=== PATIENT | female | born 1975 | race American Indian/Alaskan Native ===

== ENCOUNTER 2018-08-30 12:18 | Emergency (ER) | payer SELFPAY ==
--- NOTE | 2018-08-30 12:24 | Emergency Department Report ---
Blank Doc - Documentation Documentation: 43 y/o female presents to ED c/o of 15-30 minutes of dizziness associated with SOB, palpitations and chest ache. no visual changes. NO PMH. Deines drugs but admits to tobacco use (smoking) Plan Labs, Cxr, ekg
[2018-08-30 12:28] VITALS: BP 154/83
[2018-08-30 13:07] LABS: Basophils % (Auto) 0.6 % (0.0-1.8); Eosinophils # (Auto) 0.1 K/mm3 (0.0-0.4); Hematocrit 37.3 % (30.3-42.9); Hemoglobin 12.6 gm/dl (10.1-14.3); Mean Corpuscular HGB Conc 34 % (30-34); Mean Corpuscular Volume 89 fl (79-97); Monocytes # (Auto) 0.4 K/mm3 (0.0-0.8); Monocytes % (Auto) 7.7 % (0.0-7.3); Platelet Count 318 K/mm3 (140-440); Red Blood Count 4.17 M/mm3 (3.65-5.03); Red Cell Distribution Width 13.4 % (13.2-15.2)
[2018-08-30 13:10] LABS: Bilirubin,Urine NEG (Negative); Blood,Urine MOD (Negative); Calcium Oxalate Crystals,Urine 1+; Color,Urine Yellow (Yellow); Protein,Urine <15 mg/dL mg/dL (Negative); RBC,Urine < 1.0 /HPF (0.0-6.0); Urobilinogen,Urine < 2.0 mg/dL (<2.0); WBC,Urine < 1.0 /HPF (0.0-6.0)
[2018-08-30 13:19] LABS: Alanine Aminotransferase 12 units/L (7-56); Albumin 4.1 g/dL (3.9-5); BUN/Creatinine Ratio 13; Blood Urea Nitrogen 9 mg/dL (7-17); Calcium 8.8 mg/dL (8.4-10.2); Hemolysis Index 8
--- NOTE | 2018-08-30 13:54 | XRay Report ---
PROCEDURE: XR CHEST ROUTINE 2V TECHNIQUE: Chest, PA and lateral HISTORY: Lightheadedness/Dizziness COMPARISON: None FINDINGS: The heart size is normal. There is no pulmonary vascular congestion seen. Mediastinal contours are normal. Lungs are clear. There is no pleural effusion seen. There is no pneumothorax seen. IMPRESSION: No acute abnormality identified. This document is electronically signed by Cinthya Johnson MD., August 30 2018 01:53:14 PM ET
--- NOTE | 2018-08-30 14:10 | Emergency Department Report ---
ED Dizziness HPI - General Chief Complaint: Dizziness Stated Complaint: DIZZY Time Seen by Provider: 08/30/18 12:20 Source: patient Mode of arrival: Ambulatory Limitations: No Limitations - History of Present Illness Initial Comments: This is a 43-year-old female who presents to ED complaining about feeling lightheaded and dizzy while she was at [facility] earlier today. Patient states she was not doing the history and sensitivity she was walking when she felt her knees buckle. She did not sustain any trauma or injuries. He denies nausea/vomiting/chest pain/abdominal pain/shortness of breath MD Complaint: dizziness - Related Data Previous Rx's Medication Instructions Recorded Last Taken Type Meclizine [Antivert] 25 mg PO TID PRN #21 tablet 08/30/18 Unknown Rx Allergies Allergy/AdvReac Type Severity Reaction Status Date / Time No Known Allergies Allergy Verified 08/30/18 12:19 ED Review of Systems ROS: Stated complaint: DIZZY Other details as noted in HPI Comment: All other systems reviewed and negative Constitutional: denies: chills, fever Eyes: denies: eye pain, eye discharge, vision change ENT: denies: ear pain, throat pain Respiratory: denies: cough, shortness of breath, wheezing Cardiovascular: denies: chest pain, palpitations Endocrine: no symptoms reported Gastrointestinal: denies: abdominal pain, nausea, diarrhea Genitourinary: denies: urgency, dysuria, discharge Musculoskeletal: denies: back pain, joint swelling, arthralgia Skin: denies: rash, lesions Neurological: denies: headache, weakness, paresthesias Psychiatric: denies: anxiety, depression Hematological/Lymphatic: denies: easy bleeding, easy bruising ED Past Medical Hx - Past Medical History Previous Medical History?: No - Surgical History Additional Surgical History: c section - Social History Smoking Status: Current Every Day Smoker Substance Use Type: Alcohol - Medications Home Medications: Home Medications Medication Instructions Recorded Confirmed Last Taken Type Meclizine [Antivert] 25 mg PO TID PRN #21 tablet 08/30/18 Unknown Rx ED Physical Exam - General Limitations: No Limitations General appearance: alert, in no apparent distress - Head Head exam: Present: atraumatic, normocephalic - Eye Eye exam: Present: normal appearance - ENT ENT exam: Present: mucous membranes moist - Neck Neck exam: Present: normal inspection - Respiratory Respiratory exam: Present: normal lung sounds bilaterally. Absent: respiratory distress - Cardiovascular Cardiovascular Exam: Present: regular rate, normal rhythm. Absent: systolic murmur, diastolic murmur, rubs, gallop - GI/Abdominal GI/Abdominal exam: Present: soft, normal bowel sounds - Extremities Exam Extremities exam: Present: normal inspection - Back Exam Back exam: Present: normal inspection - Neurological Exam Neurological exam: Present: alert, oriented X3 - Psychiatric Psychiatric exam: Present: normal affect, normal mood - Skin Skin exam: Present: warm, dry, intact, normal color. Absent: rash ED Course Vital Signs 08/30/18 12:26 Temperature 98.6 F Pulse Rate 107 H Respiratory 18 Rate Blood Pressure 154/83 O2 Sat by Pulse 99 Oximetry ED Medical Decision Making - Lab Data Result diagrams: 08/30/18 12:44 08/30/18 12:44 - Radiology Data Radiology results: report reviewed, image reviewed PROCEDURE: XR CHEST ROUTINE 2V TECHNIQUE: Chest, PA and lateral HISTORY: Lightheadedness/Dizziness COMPARISON: None FINDINGS: The heart size is normal. There is no pulmonary vascular congestion seen. Mediastinal contours are normal. Lungs are clear. There is no pleural effusion seen. There is no pneumothorax seen. IMPRESSION: No acute abnormality identified. This document is electronically signed by Cinthya Chavez MD., August 30 2018 01:53:14 PM ET Transcribed By: MELCHOR Dictated By: CINTHYA CHAVEZ MD Electronically Authenticated By: CINTHYA CHAVEZ MD Signed Date/Time: 08/30/18 1914 - Medical Decision Making 23-year-old female presents with lightheadedness/vertigo. Vital signs are normal patient is not acute distress LABS within normal limits. She did mention that she is a vertical couple years ago. Patient had no neurological deficit. Patient understands instructions and patient was speaking in clear sentences. Discussed follow-up with primary care physician. Critical care attestation.: If time is entered above; I have spent that time in minutes in the direct care of this critically ill patient, excluding procedure time. ED Disposition Clinical Impression: Vertigo, Dizziness Disposition: DC-01 TO HOME OR SELFCARE Is pt being admited?: No Does the pt Need Aspirin: No Condition: Stable Instructions: Vertigo (ED), Lightheadedness (ED), Dizziness (ED) Additional Instructions: Make sure to follow up with the primary care physician as discussed. Take all your medications as you've been prescribed. If you have any worsening symptoms or develop new symptoms please return to ED immediately. Prescriptions: Meclizine [Antivert] 25 mg PO TID PRN #21 tablet PRN Reason: Vertigo Referrals: ABHILASH CARDONA MD [Primary Care Provider] - 3-5 Days Forms: Accompanied Note, Work/School Release Form(ED) Time of Disposition: 14:51
[2018-08-30] MEDS ORDERED: ANTIVERT PO ONE (14:15)
== END 2018-08-30 15:00 | disposition home or self-care (01) ==
LOC: ED 12:18
DX: R42 Dizziness and giddiness (principal); F17.200 Nicotine dependence, unspecified, uncomplicated
CPT/HCPCS: 36415; 71046; 80053; 81001; 85025; 93005; 93010

== ENCOUNTER 2018-09-07 19:35 | Emergency (ER) | payer SELFPAY ==
--- NOTE | 2018-09-07 19:47 | Event Note ---
ED Screening Note ED Screening Note: pt presents with lightheadness that began a week ago numbness in the left jaw and left side of tongue x 1 week no dizziness no vision changes states she has ringing in both ears no n/v/d +urinary frequency LNMP 10 days ago was evaluated in the ED for same sx and given meclizine, states not helping no PMHx no allergies to meds This initial assessment/diagnostic orders/clinical plan/treatment(s) is/are subject to change based on patients health status, clinical progression and re- assessment by fellow clinical providers in the ED. Further treatment and workup at subsequent clinical providers discretion. Patient/guardian urged not to elope from the ED as their condition may be serious if not clinically assessed and managed. Initial orders include: UA, urine preg, CT head, labs, EKG, orthostatic vitals
[2018-09-07 20:07] LABS: Basophils % (Auto) 0.4 % (0.0-1.8); Eosinophils # (Auto) 0.1 K/mm3 (0.0-0.4); Eosinophils % (Auto) 0.9 % (0.0-4.3); Hematocrit 36.5 % (30.3-42.9); Hemoglobin 12.4 gm/dl (10.1-14.3); Lymphocytes # (Auto) 2.5 K/mm3 (1.2-5.4); Lymphocytes % (Auto) 31.8 % (13.4-35.0); Mean Corpuscular HGB Conc 34 % (30-34); Mean Corpuscular Volume 91 fl (79-97); Monocytes # (Auto) 0.5 K/mm3 (0.0-0.8); Monocytes % (Auto) 6.3 % (0.0-7.3); Platelet Count 315 K/mm3 (140-440); Red Blood Count 4.04 M/mm3 (3.65-5.03); Red Cell Distribution Width 13.4 % (13.2-15.2)
[2018-09-07 20:29] LABS: BUN/Creatinine Ratio 14; Blood Urea Nitrogen 10 mg/dL (7-17); Calcium 9.5 mg/dL (8.4-10.2); Hemolysis Index 8
[2018-09-07 21:39] LABS: Bilirubin,Urine NEG (Negative); Blood,Urine SM (Negative); Color,Urine Colorless (Yellow); Protein,Urine <15 mg/dL mg/dL (Negative); Urobilinogen,Urine < 2.0 mg/dL (<2.0)
[2018-09-07 21:40] LABS: HCG Qualitative,Urine Negative (Negative)
--- NOTE | 2018-09-07 22:32 | Cat Scan Report ---
PROCEDURE: CT HEAD/BRAIN WO CON TECHNIQUE: Computerized tomography of the head was performed without contrast material. CT DOSE LENGTH PRODUCT: 920.5 mGycm HISTORY: lightheaded, numbness to left jaw/left tongue COMPARISONS: None . FINDINGS: Skull and scalp: Normal . Paranasal sinuses: Normal . Ventricles and subarachnoid spaces: Normal . Cerebrum: No evidence of hemorrhage, acute infarction or mass . Cerebellum and brainstem: No evidence of hemorrhage, acute infarction or mass . Vasculature: Normal . Other: None . ASPECTS: 10 IMPRESSION: No acute intracranial abnormality. This document is electronically signed by Ellen Calixto MD., September 07 2018 10:30:26 PM ET
--- NOTE | 2018-09-07 23:27 | Emergency Department Report ---
ED General Adult HPI - General Chief complaint: Dizziness Stated complaint: DIZZINESS, RINGING IN EARS, LEFT JAW NUMBNESS Time Seen by Provider: 09/07/18 19:43 Source: patient Mode of arrival: Ambulatory Limitations: No Limitations - History of Present Illness Initial comments: 43-year-old [place] female department complaining of having throat irritation and some difficulty breathing. The last one week. States that she feels like something is around her windpipe causing was to change causing her to have occasional, occasional breathing issues. She reports no hemoptysis, no hematemesis, hematochezia. Portion of fever, chills, sweats. She also reports having some mild dizziness, which is primarily concerned about what the issue is with throat. She was previously seen for her dizziness 08/30/2018 prospective prescribed Antivert but has not followed -: Sudden Radiation: non-radiation Quality: crushing, sharp, dull, constant Consistency: constant Improves with: none Worsens with: none Associated Symptoms: denies: confusion, cough, diaphoresis, loss of appetite, malaise, nausea/vomiting, syncope, weakness Treatments Prior to Arrival: none - Related Data Previous Rx's Medication Instructions Recorded Last Taken Type Meclizine [Antivert] 25 mg PO TID PRN #21 tablet 08/30/18 Unknown Rx predniSONE [Deltasone] 50 mg PO QDAY #5 tab 09/07/18 Unknown Rx Allergies Allergy/AdvReac Type Severity Reaction Status Date / Time No Known Allergies Allergy Verified 08/30/18 12:19 ED Review of Systems ROS: Stated complaint: DIZZINESS, RINGING IN EARS, LEFT JAW NUMBNESS Other details as noted in HPI Constitutional: denies: chills, fever Eyes: denies: eye pain, eye discharge, vision change ENT: throat pain. denies: ear pain, dental pain, hearing loss Respiratory: denies: cough, shortness of breath, wheezing Cardiovascular: denies: chest pain, palpitations Endocrine: no symptoms reported Gastrointestinal: denies: abdominal pain, nausea, diarrhea Genitourinary: denies: urgency, dysuria, discharge Musculoskeletal: denies: back pain, joint swelling, arthralgia Skin: denies: rash, lesions Neurological: denies: headache, weakness, paresthesias Psychiatric: denies: anxiety, depression Hematological/Lymphatic: denies: easy bleeding, easy bruising ED Past Medical Hx - Past Medical History Previous Medical History?: No - Surgical History Additional Surgical History: c section - Social History Smoking Status: Never Smoker Substance Use Type: Alcohol - Medications Home Medications: Home Medications Medication Instructions Recorded Confirmed Last Taken Type Meclizine [Antivert] 25 mg PO TID PRN #21 tablet 08/30/18 Unknown Rx predniSONE [Deltasone] 50 mg PO QDAY #5 tab 09/07/18 Unknown Rx ED Physical Exam - General Limitations: No Limitations General appearance: alert, in no apparent distress - Head Head exam: Present: atraumatic, normocephalic - Eye Eye exam: Present: normal appearance, PERRL, EOMI - ENT ENT exam: Present: normal exam, mucous membranes moist - Neck Neck exam: Present: normal inspection, full ROM, other (pharynx is clear. Airway patent. No thyromegaly is appreciated. No lymphadenopathy. Tongue and uvula midline. There is nasal congestion, some posterior sinus drainage.). Absent: tenderness, lymphadenopathy - Respiratory Respiratory exam: Present: normal lung sounds bilaterally. Absent: respiratory distress, wheezes, rales, rhonchi, chest wall tenderness, accessory muscle use, decreased breath sounds, prolonged expiratory - Cardiovascular Cardiovascular Exam: Present: regular rate, normal rhythm. Absent: systolic murmur, diastolic murmur, rubs, gallop - GI/Abdominal GI/Abdominal exam: Present: soft, normal bowel sounds. Absent: distended, tenderness, guarding, hyperactive bowel sounds, hypoactive bowel sounds, organomegaly, mass, bruit, pulsatile mass - Extremities Exam Extremities exam: Present: normal inspection, full ROM, normal capillary refill. Absent: pedal edema, calf tenderness - Back Exam Back exam: Present: normal inspection, full ROM. Absent: CVA tenderness (R), CVA tenderness (L) - Neurological Exam Neurological exam: Present: alert, oriented X3, CN II-XII intact, normal gait - Psychiatric Psychiatric exam: Present: normal affect, normal mood. Absent: depressed, yevgeniy tated, anxious, flat affect, manic, homicidal ideation, suicidal ideation - Skin Skin exam: Present: warm, dry, intact, normal color. Absent: rash, cyanosis, di aphoretic, urticaria ED Course Vital Signs 09/07/18 09/07/18 19:40 19:44 Temperature 98.1 F 98.1 F Pulse Rate 95 H 88 Respiratory 18 18 Rate Blood Pressure 138/70 138/70 O2 Sat by Pulse 100 100 Oximetry ED Medical Decision Making - Lab Data Result diagrams: 09/07/18 19:56 09/07/18 19:56 - Medical Decision Making 43-year-old [place] female with throat irritation. Voice changes associated dizziness. CT scan was negative. Examination was essentially benign. There is no increased work of breathing. No stridor. No swelling or an infectious process is noted. She tolerates by mouth with no complications Critical care attestation.: If time is entered above; I have spent that time in minutes in the direct care of this critically ill patient, excluding procedure time. ED Disposition Clinical Impression: Laryngitis Disposition: DC-01 TO HOME OR SELFCARE Is pt being admited?: No Does the pt Need Aspirin: No Condition: Stable Instructions: Laryngitis (ED) Referrals: AMY NEWBY MD [Primary Care Provider] - 3-5 Days
[2018-09-08 00:53] VITALS: BP 140/60
== END 2018-09-08 00:54 | disposition home or self-care (01) ==
LOC: ED 19:35
DX: J04.0 Acute laryngitis (principal); R42 Dizziness and giddiness
CPT/HCPCS: 36415; 70450; 80048; 81001; 81025; 83735; 85025; 93005; 93010

== ENCOUNTER 2020-05-12 12:16 | Emergency (ER) | payer SELFPAY ==
[2020-05-12] MEDS ORDERED: KETOROLAC 10 MG TAB PO ONE (13:26)
[2020-05-12] MEDS ORDERED: CYCLOBENZAPRINE 10 MG TAB PO ONE (13:26)
--- NOTE | 2020-05-12 13:58 | Emergency Department Report ---
ED Headache HPI - General Chief Complaint: Headache Stated Complaint: HEAD PAIN/NECK PAIN/LEFT SIDE NUMBNESS Time Seen by Provider: 05/12/20 13:15 - History of Present Illness Initial Comments: pt is a 44 yo female who presents to the ED with c/o left sided headache and left sided neck pain that began initially in february 2020. she states her symptoms have been exacerbating for the last 3 days. she states she typically takes tylenol and it resolves her symptoms but states she is continuing to have a nagging pain. she denies any vision changes, fever, n/v/d, numbness, weakness, gait disturbance or speech disturbance. she reports that she was seen at [facility] in february 2020 and states she was told her "imaging showed spots on the brain" she states she then saw a neurologist as an outpatient and had a MRI of the brain performed and was advised that she could follow up in 6 months. she has not called the neurologist or a primary care doctor regarding the exacerbation of her symptoms. Allergies/Adverse Reactions: Allergies No Known Allergies Allergy (Verified 05/12/20 12:38) Home Medications: Ambulatory Orders Meclizine [Antivert] 25 mg PO TID PRN #21 tablet 08/30/18 predniSONE [Deltasone] 50 mg PO QDAY #5 tab 09/07/18 Butalb/Acetaminophen/Caffeine [Fioricet 50-300-40 mg CAP] 1 cap PO Q8HR PRN #10 cap 05/12/20 Cyclobenzaprine HCl [Flexeril 5 MG TAB] 5 mg PO TID PRN #21 tab 05/12/20 ED Review of Systems ROS: Stated complaint: HEAD PAIN/NECK PAIN/LEFT SIDE NUMBNESS Other details as noted in HPI Comment: All other systems reviewed and negative ED Past Medical Hx - Past Medical History Previous Medical History?: Yes Additional medical history: 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 - Surgical History Past Surgical History?: Yes Additional Surgical History: c section - Social History Smoking Status: Never Smoker Substance Use Type: Alcohol - Medications Home Medications: Home Medications Medication Instructions Recorded Confirmed Last Taken Type Meclizine [Antivert] 25 mg PO TID PRN #21 tablet 08/30/18 Unknown Rx predniSONE [Deltasone] 50 mg PO QDAY #5 tab 09/07/18 Unknown Rx Butalb/Acetaminophen/Caffeine 1 cap PO Q8HR PRN #10 cap 05/12/20 Unknown Rx [Fioricet 50-300-40 mg CAP] Cyclobenzaprine HCl [Flexeril 5 MG 5 mg PO TID PRN #21 tab 05/12/20 Unknown Rx TAB] ED Physical Exam - General Limitations: No Limitations General appearance: alert, in no apparent distress - Head Head exam: Present: atraumatic, normocephalic - Eye Eye exam: Present: normal appearance, PERRL, EOMI. Absent: periorbital swelling, periorbital tenderness Pupils: Present: normal accommodation - ENT ENT exam: Present: mucous membranes moist - Neck Neck exam: Present: normal inspection, tenderness (mild left sided c-spine paraspinal muscular ttp, no midline C-spine ttp, no step offs, no deformities, no crepitus, no ecchymosis), full ROM. Absent: meningismus - Respiratory Respiratory exam: Present: normal lung sounds bilaterally. Absent: respiratory distress, wheezes, rales, rhonchi, stridor, chest wall tenderness, accessory muscle use, decreased breath sounds, prolonged expiratory - Cardiovascular Cardiovascular Exam: Present: regular rate, normal rhythm, normal heart sounds. Absent: systolic murmur, diastolic murmur, rubs, gallop - Neurological Exam Neurological exam: Present: alert, oriented X3, CN II-XII intact, normal gait, other (normal finger to nose, normal heel to penny, 5/5 muscle strength in the BU E/BLE, sensation intact throughout to deep and soft touch, no facial asymmetry, normal gait, normal tandem walking, no focal neuro deficit). Absent: motor sensory deficit - Psychiatric Psychiatric exam: Present: normal affect, normal mood - Skin Skin exam: Present: warm, dry, intact ED Course Vital Signs 05/12/20 05/12/20 12:39 15:09 Temperature 99.3 F Pulse Rate 113 H 70 Respiratory 18 18 Rate Blood Pressure 166/69 Blood Pressure 113/58 [Left] O2 Sat by Pulse 20 L 100 Oximetry ED Medical Decision Making - Lab Data Vital Signs 05/12/20 05/12/20 12:39 15:09 Temperature 99.3 F Pulse Rate 113 H 70 Respiratory 18 18 Rate Blood Pressure 166/69 Blood Pressure 113/58 [Left] O2 Sat by Pulse 20 L 100 Oximetry - Radiology Data Radiology results: report reviewed Ordering Physician: JENISE MENDEZ Date of Service: 05/12/20 Procedure(s): CT head/brain wo con Accession Number(s): [id number] cc: JENISE MENDEZ CT HEAD WITHOUT CONTRAST INDICATION / CLINICAL INFORMATION: headache. TECHNIQUE: Axial imaging performed from the skull apex through the skull base without the use of contrast. Sagittal and coronal reformatted images. All CT scans at this location are performed using CT dose reduction for ALARA by means of automated exposure control. COMPARISON: 09/07/2018 FINDINGS: CEREBRAL PARENCHYMA: No significant abnormality. No acute territorial infarct. HEMORRHAGE: None. EXTRA-AXIAL SPACES: Normal in size and morphology for the patient's age. VENTRICULAR SYSTEM: Normal in size and morphology for the patient's age. MIDLINE SHIFT OR HERNIATION: None. CEREBELLUM / BRAINSTEM: No significant abnormality. CALVARIUM: No significant abnormality. ORBITS: Normal as visualized. PARANASAL SINUSES / MASTOID AIR CELLS: Normal as visualized. SOFT TISSUES of HEAD: No significant abnormality. ADDITIONAL FINDINGS: None. IMPRESSION: No acute intracranial abnormality. No change since 09/07/2018. Signer Name: Colt Fontenot Jr, MD Signed: 05/12/2020 3:24 PM Workstation Name: [id number] Transcribed By: TTR Dictated By: COLT FONTENOT JR, MD Electronically Authenticated By: COLT FONTENOT JR, MD Signed Date/Time: 05/12/20 152 DD/ 152 TD/TT: - Medical Decision Making pt is a 44 yo female who presents to the ED with c/o left sided headache and left sided neck pain that began initially in february 2020. she states her symptoms have been exacerbating for the last 3 days. she states she typically takes tylenol and it resolves her symptoms but states she is continuing to have a nagging pain. she denies any vision changes, fever, n/v/d, numbness, weakness, gait disturbance or speech disturbance. she reports that she was seen at [facility] in february 2020 and states she was told her "imaging showed spots on the brain" she states she then saw a neurologist as an outpatient and had a MRI of the brain performed and was advised that she could follow up in 6 months. she has not called the neurologist or a primary care doctor regarding the exacerbation of her symptoms. Initial vitals entered incorrectly, I had nurse repeat vitals and they are normal. No abnormality on physical examination, no meningeal signs, patient is afebrile, no neuro deficits, no thunderclap headache. Patient given Flexeril and Toradol with some improvement of her symptoms.pt is requesting a CT scan of her head. I discussed with the patient that she had a recent CT head in february and an MRI with and without contrast and saw a neurologist while admitted inpatient and in clinic and they advised her to follow up in 6 months, I discussed the radiation associated with continued imaging, she continues to insist on wanting a CT scan of the head. CT head: No acute intracranial abnormality. No change since 09/07/2018. Given prescription for Fioricet and Flexeril. Discussed all results with patient. Discussed the importance of follow-up with her PCP and neurologist. Advised patient please take medication as prescribed as needed. do not drive or operate heavy machinery while taking muscle relaxer. follow up with a primary care doctor. follow up with a neurologist. return to the emergency room for any new or worsening symptoms. - Differential Diagnosis Tension headache, cluster headache, migraine, MS, cervical radiculopathy Critical care attestation.: If time is entered above; I have spent that time in minutes in the direct care of this critically ill patient, excluding procedure time. ED Disposition Clinical Impression: Neck pain Headache Qualifiers: Headache type: unspecified Headache chronicity pattern: acute headache Intractability: not intractable Qualified Code(s): R51.9 - Headache, unspecified Disposition: DC-01 TO HOME OR SELFCARE Is pt being admited?: No Does the pt Need Aspirin: No Condition: Stable Additional Instructions: please take medication as prescribed as needed. do not drive or operate heavy m achinery while taking muscle relaxer. follow up with a primary care doctor. follow up with a neurologist. return to the emergency room for any new or worsening symptoms. Prescriptions: Butalb/Acetaminophen/Caffeine [Fioricet 50-300-40 mg CAP] 1 cap PO Q8HR PRN #10 cap PRN Reason: headache Cyclobenzaprine HCl [Flexeril 5 MG TAB] 5 mg PO TID PRN #21 tab PRN Reason: muscle spasm Referrals: ABHILASH CARDONA MD [Primary Care Provider] - 2-3 Days your, neurologist [Other] - 2-3 Days Time of Disposition: 16:17 Print Language: POLISH
[2020-05-12 15:10] VITALS: BP 113/58
--- NOTE | 2020-05-12 15:29 | Cat Scan Report ---
CT HEAD WITHOUT CONTRAST INDICATION / CLINICAL INFORMATION: headache. TECHNIQUE: Axial imaging performed from the skull apex through the skull base without the use of cont rast. Sagittal and coronal reformatted images. All CT scans at this location are performed using CT dose reduction for ALARA by means of automated exposure control. COMPARISON: 09/07/2018 FINDINGS: CEREBRAL PARENCHYMA: No significant abnormality. No acute territorial infarct. HEMORRHAGE: None. EXTRA-AXIAL SPACES: Normal in size and morphology for the patient's age. VENTRICULAR SYSTEM: Normal in size and morphology for the patient's age. MIDLINE SHIFT OR HERNIATION: None. CEREBELLUM / BRAINSTEM: No significant abnormality. CALVARIUM: No significant abnormality. ORBITS: Normal as visualized. PARANASAL SINUSES / MASTOID AIR CELLS: Normal as visualized. SOFT TISSUES of HEAD: No significant abnormality. ADDITIONAL FINDINGS: None. IMPRESSION: No acute intracranial abnormality. No change since 09/07/2018. Signer Name: Colt Fontenot Jr, MD Signed: 05/12/2020 3:24 PM Workstation Name: [id number]
== END 2020-05-12 16:36 | disposition home or self-care (01) ==
LOC: ED 12:16
DX: M54.2 Cervicalgia (principal); R51.9 Headache, unspecified; Z79.899 Other long term (current) drug therapy
CPT/HCPCS: 70450; 99283

== ENCOUNTER 2021-09-23 22:02 | Emergency (ER) | payer SELFPAY ==
[2021-09-23 23:42] VITALS: BP 120/70
== END 2021-09-24 01:00 | disposition left against medical advice (07) ==
LOC: ED 22:02
DX: H53.8 Other visual disturbances (principal); R51.9 Headache, unspecified; M54.2 Cervicalgia; Z53.21 Procedure and treatment not carried out due to patient leaving prior to being seen by health care provider